=== PATIENT | female | born 1970 | race Caucasian/White ===

== ENCOUNTER 2017-01-28 15:26 | Observation (INO) ==
--- NOTE | 2017-01-28 16:14 | Emergency Department Note ---
Disposition Clinical Impression: Chest pain Qualifiers: Chest pain type: unspecified Qualified Code(s): R07.9 - Chest pain, unspecified Disposition: Admitted As Inpatient Condition: Good SOB HPI - General Chief Complaint: ED Shortness of Breath/Dyspnea Stated Complaint: SOB,CP Time Seen by Provider: 01/28/17 16:11 Source: patient Nursing Notes Reviewed: Yes Vital Signs Reviewed: Yes - History of Present Illness Mrs. Oglesby, a 46yo female, presents from home by POV with CC: SHARON. Onset 4 days ago. Worsened 3 days ago and has been progressive. Patient was seen in this emergency department 3 days ago for a different complaint which superseded her dyspnea at that time. Patient states her dyspnea has been worse with exertion, now present at rest. States she has had a left parasternal chest heaviness onset this morning at 7 AM and persisted. Patient is taking nothing to attempt to relieve her symptoms which are worsened by activity. Her chest heaviness radiates into her left jaw and left arm. On reexamination, patient is clutching her chest. PMH: Fibromyalgia. Prediabetes, obesity. Patient has remote history of hypertension, hyperlipidemia though she is currently not medicated for it. Family history: Mother had an AR younger than 65, brother and sister had MIs in their early to mid 40s. Habits: Current every day smoker. - Related Data Home Medications Medication Instructions Recorded Confirmed Gabapentin [Neurontin] 600 mg PO HS 01/05/17 01/28/17 Meloxicam [Mobic] 15 mg PO HS 01/05/17 01/28/17 Tizanidine HCl 4 - 8 mg PO HS 01/05/17 01/28/17 Previous Rx's Medication Instructions Recorded Buspirone HCl [Buspar] 7.5 mg PO BID #20 tab 01/30/17 Allergies Allergy/AdvReac Type Severity Reaction Status Date / Time acetaminophen [From Percocet] Allergy Vomiting Verified 01/28/17 15:43 aspirin [From Percodan] Allergy Vomiting Verified 01/28/17 15:43 codeine Allergy Itching Verified 01/28/17 15:43 hydrocodone [From Vicodin] Allergy Vomiting Verified 01/28/17 15:43 Oxycodone [From Percocet] Allergy Vomiting Verified 01/28/17 15:43 Penicillins [PCN] Allergy See Verified 01/28/17 15:43 Comments tramadol Allergy Itching Verified 01/28/17 15:43 All systems ED: reviewed and negative except as stated. Constitutional: Reports: weakness. Denies: fever, chills Cardiovascular: Reports: chest pain, dyspnea on exertion. Denies: palpitations , orthopnea, edema, syncope Respiratory: Reports: dyspnea, wheezes. Denies: cough, hemoptysis, stridor, sputum production Gastrointestinal: Reports: nausea. Denies: abdominal pain, vomiting, diarrhea, constipation, hematemesis, melena, hematochezia Genitourinary: Denies: urgency, dysuria, frequency Musculoskeletal: Denies: back pain, neck pain Neurological: Reports: weakness. Denies: headache, numbness, paresthesias, confusion, vertigo Hematological/Lymphatic: Denies: easy bleeding, easy bruising Past Medical History - Past Medical History Medical history: Reports: fibromyalgia, other Surgical history: Reports: bariatric surgery Psychiatric history: Reports: anxiety - Social History Smoking Status: Current every day smoker Smokeless Tobacco Status: No Alcohol use: Reports: none Drug use: Reports: none Physical Exam General: Patient is alert, oriented, and in no acute distress. HEENT: No facial asymmetry. Head is normocephalic and atraumatic. Trachea midline. Cardiovascular: Heart regular rate and rhythm without clicks, rubs, gallops, or murmurs. No JVD. PMI nondisplaced. 1+ painful pitting edema bilaterally. Patient does have sharp chest pain on sternal palpation which she states is different than the chest heaviness. Respiratory: Symmetric chest rise with good respiratory effort. Bilateral breath sounds are without crackles or rhonchi. Mild diffuse wheezing. Abdomen: Obese. Bowel sounds present normoactive x-4 quadrants. Abdomen is soft, nondistended, and nontender. Unable to assess organomegaly secondary to patient's body habitus. Psych: Patient's affect is appropriate for situation. - General General appearance: alert, in no apparent distress Course Course Narrative: Patient states that aspirin gives her an upset stomach. Patient story is concerning for cardiac event. Will begin cardiac workup and reassess. She is in agreement to come into the hospital for continued management and workup. After one nitro, patient's CP went from 8/10 to 6/10. After all 3 nitroglycerin , patient's chest pain was at a 3/10. We will dose morphine for resolution of chest pain. Patient's troponin is 0. The remainder of her serum studies are unremarkable. Her EKG remains somewhat concerning for a 1/2mm ST depression in inferior leads without T-wave inversion or ST elevation. Her story is also concerning. Spoke with the nurse practitioner for limited hospitalist who agrees to accept the patient for continued cardiac workup and ACS rule out. Spoke with the patient and nurses plan to shared decision making. She is in agreement with no additional questions or concerns at this time. Vital Signs Temperature 97.8 F 01/28/17 15:39 Pulse Rate 72 01/28/17 15:39 Respiratory Rate 16 01/28/17 15:39 Blood Pressure 137/90 01/28/17 15:39 O2 Sat by Pulse Oximetry 95 01/28/17 15:39 Temperature 97.9 F 01/30/17 15:12 Pulse Rate 83 01/30/17 15:12 Respiratory Rate 16 01/30/17 15:12 Blood Pressure 147/84 01/30/17 15:12 O2 Sat by Pulse Oximetry 97 01/30/17 15:12 Oxygen Delivery Oxygen Delivery Room Air Shortness of Breath/Dyspnea - Medical Records Medical records reviewed: Yes I reviewed the patient's medical records. - Lab Data Lab results reviewed: Yes I reviewed the patient's lab results. Result diagrams: 01/29/17 04:23 01/28/17 16:06 Lab Results 01/28/17 01/28/17 01/28/17 Range/Units 16:06 16:06 16:06 WBC 6.0 (4.3-11.1) K/mcL RBC 4.70 (3.82-4.97) M/mcL Hgb 13.7 (11.5-15.4) g/dL Hct 42.0 (35.3-44.9) % MCV 89.4 (83.0-100.0) fL MCH 29.1 (28.0-33.3) pg MCHC 32.6 (31.6-35.5) g/dL RDW 13.0 (11.5-14.5) % Plt Count 237 (140-400) K/mcL MPV 9.6 (9.4-12.4) fL Immature Gran % 0.3 (0-4) % Seg Neutrophils % 53.2 % Lymphocytes % 36.3 % Monocytes % 6.0 % Eosinophils % 3.5 % Basophils % 0.7 % Neutrophils # 3.2 (1.6-8.9) K/mcL Lymphocytes # 2.2 (0.6-4.6) K/mcL Monocytes # 0.4 (0.0-1.3) K/mcL Eosinophils # 0.2 (0.0-0.6) K/mcL Basophils # 0.0 (0.0-0.2) K/mcL PT 11.8 (9.4-12.1) Seconds INR 1.1 APTT 31.5 (26.0-36.0) Seconds Sodium 140 (136-145) mEq/L Potassium 4.2 (3.5-4.5) mEq/L Chloride 108 (98-109) mEq/L Carbon Dioxide 23 (19-29) mEq/L BUN 12 (7-20) mg/dL Creatinine 0.79 (0.57-1.11) mg/dL Est GFR ( Amer) > 60 (> 60) Est GFR (Non-Af Amer) > 60 (> 60) BUN/Creatinine Ratio 15 (6-26) Glucose 86 (70-99) mg/dL Calculated Osmolality 289 (280-300) Calcium 8.7 (8.6-10.8) mg/dL Troponin I (0-0.03) ng/mL TSH 2.472 (0.350-4.840) mcIU/mL 01/28/17 Range/Units 16:06 WBC (4.3-11.1) K/mcL RBC (3.82-4.97) M/mcL Hgb (11.5-15.4) g/dL Hct (35.3-44.9) % MCV (83.0-100.0) fL MCH (28.0-33.3) pg MCHC (31.6-35.5) g/dL RDW (11.5-14.5) % Plt Count (140-400) K/mcL MPV (9.4-12.4) fL Immature Gran % (0-4) % Seg Neutrophils % % Lymphocytes % % Monocytes % % Eosinophils % % Basophils % % Neutrophils # (1.6-8.9) K/mcL Lymphocytes # (0.6-4.6) K/mcL Monocytes # (0.0-1.3) K/mcL Eosinophils # (0.0-0.6) K/mcL Basophils # (0.0-0.2) K/mcL PT (9.4-12.1) Seconds INR APTT (26.0-36.0) Seconds Sodium (136-145) mEq/L Potassium (3.5-4.5) mEq/L Chloride (98-109) mEq/L Carbon Dioxide (19-29) mEq/L BUN (7-20) mg/dL Creatinine (0.57-1.11) mg/dL Est GFR ( Amer) (> 60) Est GFR (Non-Af Amer) (> 60) BUN/Creatinine Ratio (6-26) Glucose (70-99) mg/dL Calculated Osmolality (280-300) Calcium (8.6-10.8) mg/dL Troponin I 0.00 (0-0.03) ng/mL TSH (0.350-4.840) mcIU/mL - Radiology Data Radiology results reviewed: Yes I reviewed the patient's radiology results. Chest X-Ray 01/28/17 15:32 IMPRESSION: No pneumonia or edema D/ / Ignacio Sanchez MD / Ignacio Sanchez MD Interpreting Provider: Ingacio Sanchez MD - EKG Data EKG attestation: Yes I reviewed and interpreted this EKG. EKG results narrative: EKG dated 01/28/17 interpreted as sinus bradycardia with a rate of 58. Normal intervals IL 155, QRS 87, QT/QTc 384/381. Normal axis. Nonspecific ST-T changes with approximately half millimeter ST depression in inferior limb leads. No previous EKG for comparison. Attestation Statement - Attestation Attestation: I examined this patient and my medical decision-making was reviewed with the Resident Physician. I agree with the documented findings, disposition and treatment plan as described. Heart Score - Score History: Highly Suspicious EKG: Non Specific repolarisation Disturbance Age: 45-65 Risk Factors: Equal/Greater than 3 risk factor or history of atherosclerotic disease Troponin: Less than normal limit HEART Score Total: 6
[2017-01-28 16:16] LABS: Basophils % 0.7 %; Eosinophils # 0.2 K/mcL (0.0-0.6); Eosinophils % 3.5 %; Hemoglobin 13.7 g/dL (11.5-15.4); Immature Granulocytes % 0.3 % (0-4); Lymphocytes # 2.2 K/mcL (0.6-4.6); Lymphocytes % 36.3 %; Mean Corpuscular HGB Conc 32.6 g/dL (31.6-35.5); Mean Corpuscular Hemoglobin 29.1 pg (28.0-33.3); Mean Corpuscular Volume 89.4 fL (83.0-100.0); Mean Platelet Volume 9.6 fL (9.4-12.4); Monocytes # 0.4 K/mcL (0.0-1.3); Neutrophils # 3.2 K/mcL (1.6-8.9); Platelet Count 237 K/mcL (140-400); Segmented Neutrophils % 53.2 %
[2017-01-28 16:27] LABS: BUN/Creatinine Ratio 15 (6-26); Blood Urea Nitrogen 12 mg/dL (7-20); Calcium 8.7 mg/dL (8.6-10.8); Carbon Dioxide 23 mEq/L (19-29); Chloride 108 mEq/L (98-109); Glucose 86 mg/dL (70-99); Osmolality,Calculated 289 (280-300); Potassium 4.2 mEq/L (3.5-4.5); Sodium 140 mEq/L (136-145); eGFR For African Americans > 60 (> 60); eGFR For Non-African Americans > 60 (> 60)
[2017-01-28 16:28] LABS: INR 1.1; Prothrombin Time 11.8 Seconds (9.4-12.1)
[2017-01-28 16:30] LABS: Activated Partial Thrombo Time 31.5 Seconds (26.0-36.0)
[2017-01-28] MEDS ORDERED: Aspirin 81 MG TAB.CHEW PO ONE (16:32)
[2017-01-28] MEDS ORDERED: Ondansetron 4 MG/2 ML VIAL IVP STA (16:35)
[2017-01-28] MEDS ORDERED: *HR* Morphine 2 MG/ML SYRINGE IVP STA (16:36)
[2017-01-28 16:51] LABS: Thyroid Stimulating Hormone 2.472 mcIU/mL (0.350-4.840)
[2017-01-28] MEDS: Nitroglycerin 0.4 MG TAB.SUBL SL ONE ×3 (17:03→17:19)
--- NOTE | 2017-01-28 20:30 | Internal Med History&Physical ---
<Kiah Obrien - Last Filed: 01/28/17 20:58> Date of Encounter: 01/28/17 Time of Encounter: 20:15 Assessment and Plan (1) Chest pain Current visit: Yes Status: Acute Pt has been SOB and ADAMS for 4 days, L chest heaviness with radiation to L jaw and arm today at 0700. Heaviness becomes worse with exertion and is relieved by rest and is not reproduceable with palpation. pt states that she feels palpitations at times and is dizzy with position change. Pain was decreased from 8/10-3/10 with NTG sl and Morphine in ED. EKG sinus galileo with rate of 56, no ST elevation or depression noted, no T wave abnormalities. Stress test Cardiac diet Repeat troponins Telemetry Continuous pulse ox NTG prn pain Morphine 2mg IV q2hr prn pain Qualifiers: Chest pain type: unspecified Qualified Code(s): R07.9 - Chest pain, unspecified (2) Migraines Current visit: Yes Status: Acute Pt has history of migraines and she is seeing a new neurologist in [place]. Tonight she has a headache that is just like her normal headache that starts in the frontal area with radiation straight through to occiput. Denies nausea but c /o photophobia. States that NTG made it worse. Rates it 9/10 and no change from her normal headaches. Will monitor and can use morphine for pain control, as well as Tylenol. Qualifiers: Migraine type: unspecified Intractability: not intractable Qualified Code (s): G43.009 - Migraine without aura, not intractable, without status migrainosus (3) SOB (shortness of breath) Current visit: Yes Status: Acute Onset of SOB 4 days ago and ADAMS 3 days ago. Pt is a smoker. Pt denies wheezing, however, faint expiratory wheezing is heard in komal bases with auscultation. Chest xray negative for pneumonia or pneumothorax or any acute cardiopulmonary processes. Duonebs prn wheezing 02 prn to maintain sats > 92% (4) Tobacco abuse Current visit: Yes Status: Acute Pt smokes about 1 PPD. Refuses Nicoderm patch at this time. She is aware that it is available to her if she changes her mind. Smoking cessation information on discharge. (5) Fibromyalgia Current visit: Yes Status: Chronic Stable. Pt reports increased fatigue with chest pain and states that her shins are painful to touch during exam. Will continue to monitor and continue home medications. Internal Medicine - H&P: HPI Chief complaint: chest pain, sob x 4 days Admitted From: Home Plans for Post Hospital Care: Home History of present illness: Ms. Oglesby is a 46 year old female with a history of fibromyalgia and migraines, who presents to ED today with 4 day history of SOB, ADAMS, fatigue, and L chest heaviness starting at 0700 today. Chest heaviness is worse with activity and radiates to L jaw and arm. Pt states that it is relieved with rest and it makes her tired. States "it is sucking all of the energy out of me. Its debilitating. " She rates pain 8/10 with decrease to 3/10 with Ntg x 3 in ED. Pt also reports 9/10 frontal ROMERO with radiation to occiput, onset "earlier today" but NTG made it worse. Pt just started seeing neuro in [place] for help with migraines. Past Med Surg Social Fam HX - Past Medical History Medical history: fibromyalgia, migraine, other Psychiatric history: no psych history - Past Surgical History Surgical History: hysterectomy, bariatric surgery - Social History Smoking Status: Current every day smoker Packs per day: 1 Smokeless Tobacco Status: No Alcohol use: none Drug use: none - Family History Mother Hx Family Cardiac Disorders: Yes (HYPERTENSION.) Internal Medicine - H&P: Meds Gabapentin [Neurontin] 600 mg PO HS 01/05/17 [History] Meloxicam [Mobic] 15 mg PO HS 01/05/17 [History] Tizanidine HCl [Tizanidine HCl] 4 - 8 mg PO HS 01/05/17 [History] Allergies acetaminophen [From Percocet] Allergy (Verified 01/28/17 15:43) Vomiting aspirin [From Percodan] Allergy (Verified 01/28/17 15:43) Vomiting codeine Allergy (Verified 01/28/17 15:43) Itching hydrocodone [From Vicodin] Allergy (Verified 01/28/17 15:43) Vomiting Oxycodone [From Percocet] Allergy (Verified 01/28/17 15:43) Vomiting Penicillins [PCN] Allergy (Verified 01/28/17 15:43) See Comments Unknown tramadol Allergy (Verified 01/28/17 15:43) Itching All Systems PM: A 10-system review of systems was performed and is negative for pertinent findings except as documented above in the HPI. - Constitutional Constitutional: anorexia, fatigue, fever(s), no chills, no excessive sweating, no falls, no lethargy, no malaise, no night sweats, no weakness - EENT Eyes: photophobia, no blurry vision, no change in vision - Cardiovascular Cardiovascular ROS IM: chest pain, dyspnea, dyspnea on exertion, edema, lightheadedness, palpitations, no diaphoresis - Respiratory Respiratory: no cough, no wheezing, no chest congestion, no excessive phlegm production, no change in phlegm color, no pain with cough - Gastrointestinal Gastrointestinal: nausea, no diarrhea, no vomiting - Musculoskeletal Musculoskeletal ROS IM: myalgias, no arthralgias - Integumentary Integumentary IM: no rash - Constitutional Vitals: Temp Pulse Resp BP Pulse Ox 97.7 F 63 16 97/64 95 01/28/17 18:59 01/28/17 18:59 01/28/17 18:59 01/28/17 18:59 01/28/17 18:59 General appearance: Present: cooperative, A&O X 3, pleasant, no acute distress, answers questions appropriately - Head Head exam: Present: atraumatic, normal inspection - Eye Eye exam: Present: normal appearance, conjuntiva pink - ENT ENT exam: Present: mucous membranes moist - Neck Neck exam general surgery: Present: normal inspection. Absent: lymphadenopathy , tenderness - Respiratory Respiratory exam: Present: decreased breath sounds, CTAB, wheezes. Absent: accessory muscle use, chest wall tenderness, rales, respiratory distress, rhonchi, stridor Additional comments: Faint wheezing heard in komal bases. - Cardiovascular Cardiovascular exam: Present: RRR, +S1, +S2. Absent: bradycardia, tachycardia - GI/Abdominal GI/Abdominal exam: Present: normal bowel sounds, soft. Absent: hepatomegaly, tenderness - Extremities Exam Extremities exam: Present: full ROM, normal capillary refill, normal inspection , tenderness, warm, radial pulses palpable and symetrical. Absent: joint swelling, pedal edema Additional comments: Pt states that her legs hurt when palpated. She reports feeling like she has edema, none noted. - Neurological Exam Neurological exam: Present: alert, oriented X3. Absent: no focal deficits, facial droop, speech deficit Internal Med - H&P Results - Labs CBC & Chem 7: 01/28/17 16:06 01/28/17 16:06 - EKG Data EKG shows normal: sinus rhythm Rate: normal - EKG Data Interpretation IM: normal EKG EKG comments: 01/28/17 20:41 Sinus bradycardia Rate 56 OK int 164 QRS 89 QT/QTc 399/390 <Suellen Nazario - Last Filed: 01/28/17 21:40> Date of Encounter: 01/28/17 Internal Medicine - H&P: HPI History of present illness: Ms. Oglesby is a 46 year old female All Systems PM: A 10-system review of systems was performed and is negative for pertinent findings except as documented above in the HPI. - Constitutional Vitals: Temp Pulse Resp BP Pulse Ox 97.7 F 63 16 97/64 95 01/28/17 18:59 01/28/17 18:59 01/28/17 18:59 01/28/17 18:59 01/28/17 18:59 Internal Med - H&P Results - Labs CBC & Chem 7: 01/28/17 16:06 01/28/17 16:06 - Attending Attestation Patient seen and evaluated independently, agree with assessment and plan by Kiah Obrien CNP. Patient with shortness of breath and chest pain which developed earlier today. Chest pain is worse with exertion and deep breath. She has been relatively immobile past few days because of hip pain she developed after bathing her dog five days ago. She denies history of DVT or PE, however will order CTA to rule out PE. Will trend troponin to rule out ACS and obtain stress test in AM.
[2017-01-28] MEDS ORDERED: MOM Conc 10 ML UD.LIQ PO PRN (20:46)
[2017-01-28] MEDS ORDERED: Mag Hydrox/Al Hydrox/Simeth 30 ML UDC PO PRN (20:46)
[2017-01-28] MEDS ORDERED: Ondansetron 4 MG/2 ML VIAL IVP PRN (20:46)
[2017-01-28] MEDS ORDERED: Naloxone 0.4 MG/ML INJ IVP PRN (20:46)
[2017-01-28] MEDS ORDERED: Acetaminophen 325 MG TABLET PO PRN (20:46)
[2017-01-28] MEDS ORDERED: *HR* Morphine 2 MG/ML SYRINGE IVP PRN (20:46)
[2017-01-28] MEDS ORDERED: Ipratropium/Albuterol Neb 3 ML IH PRN (20:49)
[2017-01-28] MEDS: tiZANidine 4 MG TABLET PO SCH (21:52)
[2017-01-28] MEDS: Gabapentin 300 MG CAPSULE PO SCH (21:52)
[2017-01-29 04:45] LABS: Basophils % 0.5 %; Eosinophils # 0.3 K/mcL (0.0-0.6); Eosinophils % 3.9 %; Hematocrit 39.9 % (35.3-44.9); Hemoglobin 12.9 g/dL (11.5-15.4); Immature Granulocytes % 0.2 % (0-4); Lymphocytes # 1.7 K/mcL (0.6-4.6); Lymphocytes % 25.6 %; Mean Corpuscular HGB Conc 32.3 g/dL (31.6-35.5); Mean Corpuscular Hemoglobin 29.7 pg (28.0-33.3); Mean Corpuscular Volume 91.7 fL (83.0-100.0); Mean Platelet Volume 9.9 fL (9.4-12.4); Monocytes # 0.4 K/mcL (0.0-1.3); Monocytes % 6.1 %; Neutrophils # 4.1 K/mcL (1.6-8.9); Platelet Count 212 K/mcL (140-400); Red Blood Count 4.35 M/mcL (3.82-4.97); Red Cell Distribution Width 13.2 % (11.5-14.5); Segmented Neutrophils % 63.7 %
[2017-01-29] MEDS ORDERED: Regadenoson 0.4 MG/5 ML SYRINGE IVP ONE (07:44)
--- NOTE | 2017-01-29 08:57 | Electrocardiograph Report ---
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
--- NOTE | 2017-01-29 09:54 | Internal Med Progress Note ---
Date of Encounter: 01/29/17 Time of Encounter: 09:00 - Assessment and plan (1) Chest pain Current Visit: Yes Status: Acute Assessment and plan: Patient still endorsing chest pain though states it is less severe. She is also endorsing shortness of breath above her norm however she is on room air and her breath sounds are even and easy with good aeration. Echocardiogram pending. Her stress test will need to be over 2 days. Chest x-ray negative. Chest CTA negative. Awaiting echocardiogram and second part of her stress test. Qualifiers: Chest pain type: unspecified Qualified Code(s): R07.9 - Chest pain, unspecified (2) Ineffective coping Current Visit: Yes Status: Acute Assessment and plan: Patient stating approximately one year ago that she was convinced she was dying. She had severe pain to her entire body and had a severe headache. She states that she had to move back here and to [place] that she could be close to her family as she was dying. There is no clinical evidence of any ominous pathologies and her history. Patient is quite histrionic when she describes her symptoms. She states this time around she feels just like she did one year ago. She states that during last year's episode she was started on gabapentin and her symptoms resolved after 3 months. Strongly suspect possible psychosocial/psychological issues are playing a factor. On examination, patient with flat affect. When given news that her chest x-ray was negative and her chest CT was negative, patient appeared disappointed. We will continue workup and continue to reassure her. (3) Intracranial hypertension Current Visit: Yes Status: Chronic Assessment and plan: Patient showed me her results from [place] from 2014 at which time brain MRI revealed intracranial hypertension. Given that her current headache is more severe and in a different location than her normal migraines, will obtain a head CT. (4) Migraines Current Visit: Yes Status: Chronic Assessment and plan: patient stating she typically takes Aleve at home for her migraines however she states her current headache is much different and more severe than her normal migraines. Qualifiers: Migraine type: unspecified Intractability: not intractable Qualified Code (s): G43.009 - Migraine without aura, not intractable, without status migrainosus (5) SOB (shortness of breath) Current Visit: Yes Status: Acute Assessment and plan: Acute on chronic and worsened on exertion. Unclear causation of this time, echocardiogram pending. Chest x-ray negative. Chest CTA negative. Patient is a one pack per day smoker. On examination, respirations even and easy and lungs with good aeration throughout. Patient is tolerating room air. ITS Impressions Chest X-Ray 01/28/17 15:32 IMPRESSION: No pneumonia or edema D/ / Ignacio Sanchez MD / Ignacio Sanchez MD Interpreting Provider: Ignacio Sanchez MD Chest CTA 01/28/17 21:34 IMPRESSION: Negative examination for pulmonary embolism. Clear lungs. 34 mm low-attenuation lesion projecting off the medial right kidney likely represents a cyst. A non emergent elective ultrasound of the kidneys is recommended for further evaluation. D/ / Francisco Lindo MD / Francisco Lindo MD Interpreting Provider: Francisco Lindo MD (6) Tobacco abuse Current Visit: Yes Status: Chronic Assessment and plan: declined counseling; NRT. (7) Fibromyalgia Current Visit: Yes Status: Chronic Assessment and plan: Patient stating she has seen a brick off bearer at [facility] named Uli. She is uncertain whether or not other rheumatological possibilities were ruled out before diagnosing her with fibromyalgia. Her symptoms appear severe, though it appears as if she has underlying psychiatric issues as well, recommend follow-up outpatient. (8) History of Sendy-en-Y gastric bypass Current Visit: Yes Status: Chronic Assessment and plan: Patient states she had gastric bypass surgery in 2005. She states that she was told in the past that she was low on vitamin D and vitamin B12 but she states she has not been compliant with her supplementations. No anemia noted, recent vitamin D normal, TSH normal. We will check iron, B1, B12, zinc. - Subjective Interval history: Patient seen and examined. On examination, patient is sitting upright in her bed with her TV turned off and the lights off in her room. Patient endorsing a severe headache that is different from her usual headaches. She is also endorsing nausea but no vomiting. She is also endorsing mild chest pain that she states has gotten slightly better. She is also endorsing shortness of breath. - Constitutional Vitals: Temp Pulse Resp BP Pulse Ox 98.1 F 74 18 108/73 92 L 01/29/17 07:09 01/29/17 07:09 01/29/17 07:09 01/29/17 07:09 01/29/17 07:09 General appearance: Present: cooperative, A&O X 3, pleasant, no acute distress, answers questions appropriately - Head Head exam: Present: atraumatic, normocephalic - Eye Eye exam: Present: PERRL, conjuntiva pink, sclera anicteric Pupils: Present: PERRL - Neck Neck exam general surgery: Present: supple, trachea midline. Absent: lymphadenopathy - Respiratory Respiratory exam: Present: CTAB. Absent: accessory muscle use, decreased breath sounds, rales, respiratory distress, rhonchi, wheezes - Cardiovascular Cardiovascular exam: Present: RRR, +S1, +S2. Absent: diastolic murmur, gallop, rubs, systolic murmur - GI/Abdominal GI/Abdominal exam: Present: normal bowel sounds, soft, no peritoneal signs. Absent: distended, tenderness - Extremities Exam Extremities exam: Present: warm, radial pulses palpable and symetrical. Absent : calf tenderness, cyanotic, pedal edema - Neurological Exam Neurological exam: Present: alert, CN II-XII intact, oriented X3, no focal deficits, strengths equal and symetr throughout. Absent: pronater drift, facial droop, speech deficit - Psychiatric Psychiatric exam: Present: flat affect. Absent: suicidal ideation - Expanded Psychiatric Exam Focused psych exam: Present: perseverating - Skin Skin exam: Present: dry, intact, pallor, warm Internal Medicine: Result - Labs CBC & Chem 7: 01/29/17 04:23 01/28/17 16:06 Labs: Short CBC 01/29/17 Range/Units 04:23 WBC 6.4 (4.3-11.1) K/mcL Hgb 12.9 (11.5-15.4) g/dL Hct 39.9 (35.3-44.9) % Plt Count 212 (140-400) K/mcL Neutrophils # 4.1 (1.6-8.9) K/mcL Cardiac Enzymes 01/28/17 01/29/17 Range/Units 21:30 04:23 Troponin I 0.00 0.00 (0-0.03) ng/mL - ABG Interpretation ABG results: PT/INR, D-dimer PT 11.8 Seconds (9.4-12.1) 01/28/17 16:06 - Impressions Impressions Chest CTA 01/28/17 21:34 IMPRESSION: Negative examination for pulmonary embolism. Clear lungs. 34 mm low-attenuation lesion projecting off the medial right kidney likely represents a cyst. A non emergent elective ultrasound of the kidneys is recommended for further evaluation. D/ / Francisco Lindo MD / Francisco Lindo MD Interpreting Provider: Francisco Lindo MD Consult Discharge Plan - Plan Referrals: Alexy Mcmahan DO [Primary Care Provider] -
[2017-01-29] MEDS ORDERED: Ketorolac 30 MG/ML VIAL IVP ONE (10:08)
[2017-01-29] MEDS ORDERED: Ondansetron 4 MG/2 ML VIAL IVP PRN (10:12)
[2017-01-29] MEDS: Prochlorperazine 10 MG/2 ML VIAL IVP SCH (13:25)
[2017-01-29] MEDS: Gabapentin 300 MG CAPSULE PO SCH (21:34)
[2017-01-29] MEDS: tiZANidine 4 MG TABLET PO SCH (21:34)
[2017-01-30 05:45] LABS: % Iron Saturation 20 % (15-50); Iron 76 mcg/dL (50-170); Transferrin 267 mg/dL (180-382)
[2017-01-30 06:06] LABS: Ferritin 9 ng/ml (5-204)
[2017-01-30] MEDS: Prochlorperazine 10 MG/2 ML VIAL IVP SCH (07:39)
--- NOTE | 2017-01-30 10:11 | ECHO - Doppler Report ---
Echocardiogram Name: Kalyn Oglesby Date of Study: 01/29/2017 Date: 1970 Ht: 63.0 in Medical Record#: [id number] Age: 46 Wt: 250.0 lb Gender: Female BSA: 2.13 Order #: [id number] Location: [facility] Room #: 3B Reading Physician: Luis Poe DO, SHAWN, STANLEY HAQUE Milking System Installer: Nichelle Castillo RVT Ordering Physician: Marry Dwakins CNP Primary Physician: Alexy Mcmahan DO Indications: Dyspnea on exertion, Fatigue Impressions: LVEF 60-65%. Normal LV chamber size, wall thickness and function. Normal left ventricular diastolic function. Normal right ventricular structure and function. No evidence of pulmonary hypertension. No significant valvular dysfunction. Left Ventricular Wall Motion: Rest Echo Findings All wall segments showed normal motion. Findings: Study Quality * Technically adequate exam. ECG Findings * Normal sinus rhythm. Left Ventricle * LVEF 60-65%. * Normal LV chamber size, wall thickness and function. * Normal left ventricular diastolic function. Right Ventricle * Normal right ventricular structure and function. Left Atrium * Mildly dilated left atrium. Right Atrium * Mildly dilated right atrium. Interatrial Septum * Interatrial septum not well evaluated. Aortic Valve * Aortic valve not well visualized. * No aortic regurgitation. * No aortic stenosis. Mitral Valve * Normal mitral valve structure and function. * No mitral stenosis. * No mitral regurgitation. Tricuspid Valve * Normal tricuspid valve structure and function. * Trace tricuspid regurgitation. * No evidence of pulmonary hypertension. Pulmonic Valve * Normal pulmonic valve structure and function. * No pulmonic regurgitation. Pericardium * The pericardium appears normal. IVC * Normal IVC dimensions and inspiratory collapse. Pulmonary Artery * Normal visualized portions of the main pulmonary artery. History History of Smoking Years 20 Packs 1 Family History of CAD Measurements: BP: 126/ 76 2D Normal Values RVIDd: 3.40 cm <2.7 cm IVSd: .70 cm 0.6 - 1.0 cm LVIDd: 4.80 cm 3.7 - 5.6 cm LVPWd: .90 cm 0.6 - 1.1 cm LVIDs: 3.50 cm 1.5 - 3.6 cm AO: 2.50 cm < 4.0 cm LA: 3.00 cm 2.0 - 4.0cm %FS: 27.10 cm >25 % LA volume: 58 Mitral Valve Peak E:.85 m/sec Peak A:.70 m/sec E/A Ratio:1.2 Peak E' Lat Tom:11.2 cm/s Peak E' Med Tom:9.51 cm/s E/E' Lat Ratio:7.6 E/E' Med Ratio:8.9 Tricuspid Valve TV Regurg Peak Grad: 10.00mmHg TV Regurg Peak Tom: 1.61m/sec Updated by Luis Poe DO, FACZechariah, STANLEY HAQUE on 01/30/2017 10:06:08 AM electronically signed on 01/30/2017 10:06:27 AM with status of Final Wall Motion Amos: 1=Normal, 2=Hypokinesis, 3=Akinesis, 4=Dyskinesis, 5=Aneurysmal, 6=Hyperkinetic, X=Not Visualized (Blank)=Missing
--- NOTE | 2017-01-30 11:10 | Electrocardiograph Report ---
Regadenoson Nuclear 2 day Name: Kalyn Oglesby Date of Study: 01/29/2017 Date: 1970 Ht: 63.0 in Medical Record#: [id number] Age: 46 Wt: 254.0 lb Gender: Female Order #: [id number] Location: [facility] Room: [facility] Supervising Provider: Jorge Roche CNP Reading Physician: Luis Poe DO, GARLAND ESCOBAR FASNC Ordering Physician: Sage Beck MD Primary Care Physician: Alexy Mcmahan DO Stress Technologist: Josselin Corbin ANALYTICAL RESEARCH CHEMIST, CCT Self Sealing Fuel Tank Builder: Blu Hackett Indications: Chest Pain Impression: Pharmacologic stress ECG is negative for ischemia at level of heart rate achieved. Gated EF > 70%. Perfusion imaging was negative for ischemia or infarct. History: History of Smoking Stress Test Summary: Stress Test Type: Pharmacologic Regadenoson 0.4mg/5ml given IV Baseline Information: Initial Heart Rate: 77 Blood Pressure: 136/78 Stress Information: Test Terminated Due to (primary): As per protocol Maximum Blood Pressure: 124/78 Maximum Heart Rate: 119 Percent Maximum Heart Rate Achieved: 69 Double Product: 72250 METS Reached: 1 Symptoms: Nausea, No chest symptoms Nuclear Summary: SPECT myocardial perfusion imaging using Tc99m Sestamibi given intravenously was performed at rest and following cardiac stress testing. The resting images were obtained following initial dose of 35.8 mCi. Following stress an additional dose of 33.7 mCi was given at peak exercise or 30 seconds post regadenoson infusion. Medication Given: Time Medication Dose Units Route Findings: Stress Note * Resting ECG demonstrated normal sinus rhythm. * No baseline arrhythmias were noted. * Pharmacologic stress ECG is negative for ischemia at level of heart rate achieved. * No arrhythmias were noted during stress. * Patient had no chest pain during stress. * Normal hemodynamic responses to pharmacologic stress. Study Quality * Study quality is good. Gated EF > 70% * Gated EF > 70%. Left Ventricle * The left ventricle is not dilated. LVEDV = 84 mL. NORMALS * Normal wall motion. * Normal segmental perfusion in rest. * Normal segmental perfusion in stress. TID * No evidence of transient ischemic dilatation. TID ratio = 0.69. Lung Uptake * There is no evidence of increase lung uptake. Updated by Luis Poe DO, FACZechariah, GARLAND, FASHELGA on 01/30/2017 11:04:32 AM electronically signed on 01/30/2017 11:05:33 AM with status of Final
--- NOTE | 2017-01-30 15:03 | Discharge Summary ---
Date of Encounter: 01/30/17 Time of Encounter: 14:00 - Discharge Diagnosis (1) Chest pain Priority: Primary Status: Acute Comments: Patient still endorsing chest pain though states it is less severe. She is also endorsing shortness of breath above her norm however she is on room air and her breath sounds are even and easy with good aeration. Echocardiogram unremarkable with ejection fraction of 60-65%. Stress test negative. Chest x- ray negative. Chest CTA negative. Acute pulmonic or cardiac etiologies ruled out. Examination and history consistent with anxiety. Qualifiers: Chest pain type: unspecified Qualified Code(s): R07.9 - Chest pain, unspecified (2) Ineffective coping Priority: Primary Status: Acute Comments: Patient stating she is upset that all of the testing was negative. she continues to be concerned and anxious. Will initiate Buspar prn and have her followup outpatient. (3) Intracranial hypertension Priority: Secondary Status: Ruled-out Comments: Head CT negative (4) Migraines Priority: Secondary Status: Chronic Qualifiers: Migraine type: unspecified Intractability: not intractable Qualified Code (s): G43.009 - Migraine without aura, not intractable, without status migrainosus (5) SOB (shortness of breath) Priority: Primary Status: Ruled-out (6) Tobacco abuse Priority: Secondary Status: Chronic Comments: Declined counseling (7) Fibromyalgia Priority: Secondary Status: Chronic Comments: Follows with a internet retailer Dr. 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 No anemia. - Discharge Medications Prescriptions: Buspirone HCl [Buspar] 7.5 mg PO BID #20 tab Home Medications: Gabapentin [Neurontin] 600 mg PO HS 01/05/17 [History] Meloxicam [Mobic] 15 mg PO HS 01/05/17 [History] Tizanidine HCl 4 - 8 mg PO HS 01/05/17 [History] Buspirone HCl [Buspar] 7.5 mg PO BID #20 tab 01/30/17 [Rx] Allergies/Adverse Reactions: Allergies acetaminophen [From Percocet] Allergy (Verified 01/28/17 15:43) Vomiting aspirin [From Percodan] Allergy (Verified 01/28/17 15:43) Vomiting codeine Allergy (Verified 01/28/17 15:43) Itching hydrocodone [From Vicodin] Allergy (Verified 01/28/17 15:43) Vomiting Oxycodone [From Percocet] Allergy (Verified 01/28/17 15:43) Vomiting Penicillins [PCN] Allergy (Verified 01/28/17 15:43) See Comments Unknown tramadol Allergy (Verified 01/28/17 15:43) Itching Procedures/tests Complete & Pending: Procedures Performed prior 72 hours Category Date Time Status CT angio chest [CT] Stat Cat Scan 01/28/17 21:[address] head/brain wo con [CT] Routine Cat Scan 01/29/17 15:00 Completed NM yoni perf SPECT multi [NM] Routine Exams 01/28/17 20:46 Taken ECG 12 lead ECG [ECG] Routine Y 01/29/17 17:58 Completed EV echocardiogram Routine Y 01/29/17 08:01 Completed SP pharm nuclear stress Routine Y 01/29/17 07:35 Completed Date of admission: 01/28/17 18:20 Primary care physician: Alexy Mcmahan, Discharging clinician: Marry Dawkins Anticipated date of discharge: 01/30/17 - Patient Status Disposition: Home, Self-Care Condition: Good Functional capacity at discharge: independent ambulation Overall status at discharge: patient is back to baseline - Discharge Instructions Follow Up With: Alexy Mcmahan, [Primary Care Provider] - Additional Instructions: Follow-up with primary care provider within one to 2 weeks - Diet and Activity Activity: increase activity as tolerated Diet: low fat, low cholesterol, low salt diet Hospital course: Ms. Oglesby is a 46 year old female with past medical history of fibromyalgia, migraines, current tobacco abuse, history of Sendy-en-Y and hysterectomy. Patient presented to the emergency department chief complaint 4 day history of shortness of breath, dyspnea on exertion, fatigue, and left-sided chest heaviness starting on the day of presentation. Patient stating her chest heaviness was worse with activity radiated to her left side of her jaw and her left arm. Patient stating the heaviness was relieved with rest and states that the heaviness also made her feel tired. Patient stating that the heaviness "sucked all of my energy out and was debilitating." Pain was slightly abated by nitroglycerin given in the emergency department. Patient also endorsed a frontal headache with radiation to her occiput that started on the day of presentation but was worsened with nitroglycerin. Of note, patient has a neurologist and [place] to help with her migraines and she also has a internet retailer and [place]. Workup in the emergency department unremarkable. Chest x-ray negative. Chest CTA negative for acute processes. Patient was admitted to the hospitalist service for further evaluation and management. Patient revealed paperwork from [place] that showed an old MRI from 2014 of her brain that revealed intracranial hypertension. Head CT negative. She was then treated for migraine and her headache improved. Regarding her chest pain, she had a 2 day nuclear stress test that was negative for ischemia or infarct. Acute coronary syndrome ruled out. Patient was informed of the negative results of her stress test, echo, head CT, chest x-ray , chest CTA, patient became disappointed. With acute pulmonic and cardiac and neurologic etiologies ruled out, she was discharged home in stable condition with close outpatient follow-up recommended. Likely cause of patient's decreased energy uncontrolled anxiety. Her main symptoms were shortness of breath, numbness and tingling of her hands, chest tightness-all consistent with anxiety attack. She was started on BuSpar and instructed to follow-up with her primary care team. Also of note, approximately one year ago, patient stating she had the same type of symptoms happen and felt as if she was dieting since she moved from [place] to [place] said that she could be around her family. Patient stating she was then cured approximately 3 months later after she had been on gabapentin. ITS Impressions Chest X-Ray 01/28/17 15:32 IMPRESSION: No pneumonia or edema D/ / Ignacio Sanchez MD / Ignacio Sanchez MD Interpreting Provider: Ignacio Sanchez MD Chest CTA 01/28/17 21:34 IMPRESSION: Negative examination for pulmonary embolism. Clear lungs. 34 mm low-attenuation lesion projecting off the medial right kidney likely represents a cyst. A non emergent elective ultrasound of the kidneys is recommended for further evaluation. D/ / Francisco Lindo MD / Francisco Lindo MD Interpreting Provider: Francisco Lindo MD Head CT 01/29/17 15:00 IMPRESSION: No acute intracranial abnormality. D/ / Alexy Kenney MD / Alexy Kenney MD Interpreting Provider: Alexy Kenney MD Echocardiogram impressions: LVEF 60-65%. Normal LV chamber size, wall thickness and function. Normal left ventricular diastolic function. Normal right ventricular structure and function. No evidence of pulmonary hypertension. No significant valvular dysfunction. - Time Spent with Patient Total time spent providing and/or coordinating discharge services: - Constitutional Vitals: Temp Pulse Resp BP Pulse Ox 97.8 F 72 17 162/88 97 01/30/17 11:01 01/30/17 11:01 01/30/17 11:01 01/30/17 11:01 01/30/17 11:01 General appearance: Present: cooperative, A&O X 3, pleasant, no acute distress, answers questions appropriately - Head Head exam: Present: atraumatic, normocephalic - Eye Eye exam: Present: PERRL, conjuntiva pink, sclera anicteric Pupils: Present: PERRL - Neck Neck exam general surgery: Present: supple, trachea midline. Absent: lymphadenopathy - Respiratory Respiratory exam: Present: CTAB. Absent: accessory muscle use, decreased breath sounds, rales, respiratory distress, rhonchi, wheezes - Cardiovascular Cardiovascular exam: Present: RRR, +S1, +S2. Absent: diastolic murmur, gallop, rubs, systolic murmur - GI/Abdominal GI/Abdominal exam: Present: normal bowel sounds, soft, no peritoneal signs. Absent: distended, tenderness - Extremities Exam Extremities exam: Present: warm, radial pulses palpable and symetrical. Absent : calf tenderness, cyanotic, pedal edema - Neurological Exam Neurological exam: Present: alert, CN II-XII intact, normal gait, oriented X3, no focal deficits, strengths equal and symetr throughout. Absent: pronater drift, facial droop, speech deficit - Skin Skin exam: Present: dry, intact, normal color, warm
[2017-01-30 15:14] VITALS: BP 147/84
[2017-02-03 07:16] LABS: Zinc 58 ug/dL (60-120)
[2017-02-04 08:19] LABS: Vitamin B1 (Thiamine) Whole Bl 72 nmol/L (70-180)
== END 2017-01-30 16:16 | disposition home or self-care (01) ==
LOC: EMEROO 15:26 → 3BNU 15:26 → SUATTDRO 18:20 → 3BNU 18:28
PROVIDERS: ADMIT Internal Medicine; ATTEND Nurse Practitioner Family

== ENCOUNTER 2020-02-06 06:31 | Inpatient (IN) ==
[~2020-02-06 06:31] MED LIST: Gabapentin 300 MG CAPSULE PO ONE; Ipratropium/Albuterol Neb 3 ML IH ONE
[2020-02-06] MEDS ORDERED: *HR* Labetalol 20 MG/4 ML SYRINGE IVP PRN (07:03)
[2020-02-06] MEDS ORDERED: *HR* Promethazine 25 MG/ML VIAL IVP PRN (07:03)
[2020-02-06] MEDS ORDERED: Ondansetron 4 MG/2 ML VIAL IVP PRN ×2 (07:03→11:40)
[2020-02-06] MEDS ORDERED: *HR* HYDROmorphone (PF) 1 MG/ML SYRINGE IVP PRN (07:03)
[2020-02-06] MEDS ORDERED: Celecoxib 200 MG CAPSULE PO ONE (07:16)
[2020-02-06] MEDS ORDERED: *HR* Midazolam HCl 2 MG/2 ML VIAL ONE (07:23)
[2020-02-06] MEDS ORDERED: *HR* FentaNYL (PF) 100 MCG/2 ML VIAL ONE (07:23)
[2020-02-06] MEDS ORDERED: Ethanol\\Acetic Acid\\Na Ace\\Ben 1,000 ML IRRIG.SOLN IR ONE (07:24)
[2020-02-06] MEDS ORDERED: *HR* Propofol 200 MG/20 ML VIAL IVP ONE (07:24)
[2020-02-06] MEDS ORDERED: Lidocaine -MPF 2% 2 ML VIAL ONE ×3 (07:25→08:03)
[2020-02-06] MEDS ORDERED: Dexamethasone 4 MG/ML VIAL ONE ×2 (07:25→07:32)
[2020-02-06] MEDS ORDERED: Ondansetron 4 MG/2 ML VIAL ONE (07:25)
[2020-02-06] MEDS ORDERED: *HR* Succinylcholine 200 MG/10 ML VIAL IVP ONE (07:25)
[2020-02-06] MEDS ORDERED: *HR* HYDROMORPHONE 2 MG/ML VIAL ONE (07:33)
[2020-02-06] MEDS ORDERED: Lidocaine HCL 4 ML Topical Solution (Laryng-O-Jet Kit Sterile Pak) TP ONE (07:33)
[2020-02-06] MEDS ORDERED: Clindamycin 900 MG/50 ML 900 MG/50 ML IV.SOLN IVPB ONE (07:52)
[2020-02-06] MEDS ORDERED: Ringers Solution, Lactated 1,000 ML IVC SCH (08:00)
[2020-02-06] MEDS ORDERED: *HR* Rocuronium Bromide 50 MG/5 ML VIAL ONE (08:03)
[2020-02-06] MEDS ORDERED: *HR* PHENYLEPHRINE 1,000 MCG/10 ML SYRINGE IVP ONE (09:21)
[2020-02-06] MEDS ORDERED: EPHEDrine 50 MG/ML VIAL ONE (09:23)
[2020-02-06 10:57] LABS: Hematocrit 39.8 % (35.3-44.9); Hemoglobin 11.8 g/dL (11.5-15.4)
[2020-02-06] MEDS ORDERED: Baclofen 10 MG TABLET PO PRN (11:40)
[2020-02-06] MEDS ORDERED: MOM Conc 10 ML UD.LIQ PO PRN (11:40)
[2020-02-06] MEDS ORDERED: Naloxone 0.4 MG/ML INJ IVP PRN (11:40)
[2020-02-06] MEDS ORDERED: Sennosides 8.6 MG TABLET PO PRN (11:40)
[2020-02-06] MEDS ORDERED: tiZANidine 4 MG TABLET PO PRN (11:40)
[2020-02-06] MEDS: Ringers Solution, Lactated 1,000 ML IVC SCH (14:16)
[2020-02-06] MEDS ORDERED: HYDROcodone BIT/Homatropine 5 MG TABLET PO PRN (15:35)
[2020-02-06] MEDS ORDERED: Acetaminophen IV 1,000 MG/100 ML INFUS..BTL IVPB ONE (15:37)
[2020-02-06] MEDS: Gabapentin 300 MG CAPSULE PO SCH ×2 (16:10→19:55)
[2020-02-06] MEDS: Clindamycin 900 MG/50 ML 900 MG/50 ML IV.SOLN IVPB SCH ×2 (17:08→23:52)
[2020-02-06] MEDS: *HR* Enoxaparin 30 MG/0.3 ML SYRINGE SQ SCH (17:09)
[2020-02-06] MEDS ORDERED: *HR* Enoxaparin 30 MG/0.3 ML SYRINGE SQ SCH (18:00)
[2020-02-06] MEDS: HYDROcodone BIT/Homatropine 5 MG TABLET PO PRN (18:00)
[2020-02-06] MEDS: Ketorolac 30 MG/ML VIAL IVP PRN (19:55)
[2020-02-07] MEDS: HYDROcodone BIT/Homatropine 5 MG TABLET PO PRN ×2 (03:44→08:04)
[2020-02-07] MEDS: Ketorolac 30 MG/ML VIAL IVP PRN (06:04)
[2020-02-07] MEDS: *HR* Enoxaparin 30 MG/0.3 ML SYRINGE SQ SCH (06:04)
[2020-02-07 06:19] LABS: Hematocrit 34.1 % (35.3-44.9)
[2020-02-07 06:22] LABS: Hemoglobin 10.2 g/dL (11.5-15.4)
[2020-02-07 06:40] LABS: BUN/Creatinine Ratio 18 (6-26); Blood Urea Nitrogen 13 mg/dL (6-20); Calcium 8.7 mg/dL (8.6-10.3); Carbon Dioxide 28 mEq/L (23-29); Chloride 103 mEq/L (98-107); Glucose 120 mg/dL (70-105); Osmolality,Calculated 283 (280-300); Potassium 4.5 mEq/L (3.5-5.1); Sodium 136 mEq/L (136-145); eGFR For African Americans > 60 (> 60); eGFR For Non-African Americans > 60 (> 60)
[2020-02-07 07:03] VITALS: BP 129/74
[2020-02-07] MEDS: Ringers Solution, Lactated 1,000 ML IVC SCH (07:13)
[2020-02-07] MEDS: Gabapentin 300 MG CAPSULE PO SCH (08:04)
[2020-02-07] MEDS ORDERED: Spironolactone 25 MG TABLET PO SCH (09:00)
[2020-02-07] MEDS ORDERED: Primidone 50 MG TABLET PO SCH (09:00)
== END 2020-02-07 13:06 | disposition home health service (06) | DRG 483 ==
LOC: SAMDAY 06:31 → 3NENU 11:11
PROVIDERS: ADMIT Orthopaedic Surgery; ATTEND Orthopaedic Surgery

== ENCOUNTER 2020-02-13 09:23 | Observation (INO) ==
[2020-02-13] MEDS ORDERED: Ipratropium/Albuterol Neb 3 ML IH ONE (09:59)
[2020-02-13 11:01] LABS: Basophils % 0.1 %; Eosinophils # 0.2 K/mcL (0.0-0.6); Eosinophils % 2.7 %; Hematocrit 37.4 % (35.3-44.9); Hemoglobin 11.3 g/dL (11.5-15.4); Immature Granulocytes % 0.9 % (0-4); Lymphocytes # 1.4 K/mcL (0.6-4.6); Lymphocytes % 19.9 %; Mean Corpuscular HGB Conc 30.2 g/dL (31.6-35.5); Mean Corpuscular Hemoglobin 28.2 pg (28.0-33.3); Mean Corpuscular Volume 93.3 fL (83.0-100.0); Mean Platelet Volume 8.8 fL (9.4-12.4); Monocytes # 0.5 K/mcL (0.0-1.3); Monocytes % 7.4 %; Neutrophils # 4.8 K/mcL (1.6-8.9); Nucleated Red Blood Cells 0.3 /100 WBC (0); Platelet Count 263 K/mcL (140-400); Red Blood Count 4.01 M/mcL (3.82-4.97); Red Cell Distribution Width 16.8 % (11.5-14.5)
[2020-02-13 11:13] LABS: INR 1.2; Prothrombin Time 13.1 Seconds (9.4-12.1)
[2020-02-13 11:15] LABS: Activated Partial Thrombo Time 33.2 Seconds (26.0-36.0)
[2020-02-13] MEDS ORDERED: Isovue-370 500 ML BOTTLE IVP ONE (11:18)
[2020-02-13] MEDS ORDERED: 0.9 % Sodium Chloride 1,000 ML IV ONE (11:21)
[2020-02-13 11:28] LABS: BUN/Creatinine Ratio 13 (6-26); Blood Urea Nitrogen 9 mg/dL (6-20); Calcium 9.4 mg/dL (8.6-10.3); Carbon Dioxide 27 mEq/L (23-29); Chloride 102 mEq/L (98-107); Glucose 103 mg/dL (70-105); Osmolality,Calculated 281 (280-300); Potassium 4.2 mEq/L (3.5-5.1); Sodium 136 mEq/L (136-145); eGFR For African Americans > 60 (> 60); eGFR For Non-African Americans > 60 (> 60)
[2020-02-13 11:35] LABS: Troponin I 0.04 ng/mL (< 0.04)
[2020-02-13 11:46] LABS: Albumin 3.6 g/dL (3.5-5.7); Albumin/Globulin Ratio 1.1 (1.1-2.2); Bilirubin,Direct 0.1 mg/dL (0.0-0.2); Bilirubin,Indirect 0.5 mg/dL (0.0-1.0); Bilirubin,Total 0.6 mg/dL (0.3-1.0); Globulin 3.3 g/dL (2.4-3.5); Total Protein 6.9 g/dL (6.4-8.9)
[2020-02-13 12:34] LABS: Bilirubin,Urine Negative (Negative); Blood,Urine Negative (Negative); Clarity,Urine Clear (Clear); Color,Urine Yellow (Yellow); Glucose,Urine (UA) Normal (Normal); Ketones,Urine 15 mg/dL (Negative); Leukocyte Esterase,Urine Negative (Negative); Nitrite,Urine Negative (Negative); Protein,Urine Negative (Neg-Trace); Specific Gravity,Urine 1.014 (1.010-1.025); Urobilinogen,Urine Normal (Normal)
[2020-02-13] MEDS ORDERED: Nitroglycerin 1 INCH/GM PACKET TP ONE (13:25)
[2020-02-13] MEDS ORDERED: Naloxone 0.4 MG/ML INJ IVP PRN (14:46)
[2020-02-13] MEDS ORDERED: 0.9 % Sodium Chloride 1,000 ML IVC SCH (15:00)
[2020-02-13] MEDS ORDERED: Baclofen 10 MG TABLET PO PRN (15:49)
[2020-02-13] MEDS ORDERED: NON-FORMULARY MEDICATION 1 EACH EACH (Meloxicam [Mobic] 15 MG) PO PRN (15:49)
[2020-02-13] MEDS: Ipratropium/Albuterol Neb 3 ML IH SCH ×2 (16:36→21:55)
[2020-02-13] MEDS: Acetaminophen 325 MG TABLET PO PRN (16:57)
[2020-02-13] MEDS: methylPREDNISolone 125 MG/2 ML VIAL IVP SCH (16:58)
[2020-02-13] MEDS: *HR* Heparin 5,000 UNIT/ML VIAL SQ SCH (16:58)
[2020-02-13] MEDS: tiZANidine 4 MG TABLET PO PRN (16:58)
[2020-02-13] MEDS: Gabapentin 300 MG CAPSULE PO SCH (20:07)
[2020-02-13 22:41] LABS: Adenovirus Not Detected (Not Detect); Bordetella Pertussis Not Detected (Not Detect); Chlamydophila pneumoniae Not Detected (Not Detect); Coronavirus 229E Not Detected (Not Detect); Coronavirus HKU1 Not Detected (Not Detect); Coronavirus NL63 Not Detected (Not Detect); Coronavirus OC43 Not Detected (Not Detect); Human Metapneumovirus Not Detected (Not Detect); Human Rhinovirus/Enterovirus Not Detected (Not Detect); Influenza A Subtype 2009 H1 Not Detected (Not Detect); Influenza B Not Detected (Not Detect); Mycoplasma pneumoniae Not Detected (Not Detect); Parainfluenza Virus 1 Not Detected (Not Detect); Parainfluenza Virus 2 Not Detected (Not Detect); Parainfluenza Virus 3 Not Detected (Not Detect); Parainfluenza Virus 4 Not Detected (Not Detect); Respiratory Syncytial Virus Not Detected (Not Detect)
[2020-02-14] MEDS: Acetaminophen 325 MG TABLET PO PRN ×2 (01:53→08:48)
[2020-02-14] MEDS: tiZANidine 4 MG TABLET PO PRN (01:54)
[2020-02-14] MEDS: *HR* Heparin 5,000 UNIT/ML VIAL SQ SCH (03:50)
[2020-02-14] MEDS: methylPREDNISolone 125 MG/2 ML VIAL IVP SCH (04:09)
[2020-02-14] MEDS: Ipratropium/Albuterol Neb 3 ML IH SCH ×2 (04:26→10:35)
[2020-02-14 04:50] LABS: Basophils % 0.2 %; Eosinophils % 0.1 %; Hematocrit 33.7 % (35.3-44.9); Hemoglobin 10.4 g/dL (11.5-15.4); Immature Granulocytes % 1.3 % (0-4); Lymphocytes # 0.9 K/mcL (0.6-4.6); Lymphocytes % 9.3 %; Mean Corpuscular HGB Conc 30.9 g/dL (31.6-35.5); Mean Corpuscular Hemoglobin 28.4 pg (28.0-33.3); Mean Corpuscular Volume 92.1 fL (83.0-100.0); Mean Platelet Volume 9.1 fL (9.4-12.4); Monocytes # 0.3 K/mcL (0.0-1.3); Monocytes % 3.4 %; Neutrophils # 7.8 K/mcL (1.6-8.9); Platelet Count 296 K/mcL (140-400); Red Blood Count 3.66 M/mcL (3.82-4.97); Red Cell Distribution Width 16.6 % (11.5-14.5); Segmented Neutrophils % 85.7 %; White Blood Count 9.2 K/mcL (4.3-11.1)
[2020-02-14 05:13] LABS: BUN/Creatinine Ratio 20 (6-26); Blood Urea Nitrogen 15 mg/dL (6-20); Calcium 8.9 mg/dL (8.6-10.3); Carbon Dioxide 23 mEq/L (23-29); Chloride 104 mEq/L (98-107); Glucose 144 mg/dL (70-105); Osmolality,Calculated 281 (280-300); Potassium 4.3 mEq/L (3.5-5.1); Sodium 134 mEq/L (136-145); eGFR For African Americans > 60 (> 60); eGFR For Non-African Americans > 60 (> 60)
[2020-02-14] MEDS: Gabapentin 300 MG CAPSULE PO SCH (07:49)
[2020-02-14] MEDS ORDERED: Spironolactone 25 MG TABLET PO SCH (09:00)
[2020-02-14] MEDS ORDERED: *HR* HYDROcodone/Acet 5/325 mg TABLET PO PRN (11:06)
[2020-02-14] MEDS ORDERED: Acetaminophen/Butalbital/CaffeineTABLET PO PRN (13:43)
[2020-02-14] MEDS ORDERED: Azithromycin 500 MG in 0.9 % Sodium Chloride 250 ML IVPB SCH (14:00)
[2020-02-14 16:36] VITALS: BP 146/80
[2020-02-14] MEDS ORDERED: MethylPREDNISolone 40 MG/ML VIAL IVP SCH (18:00)
[2020-02-15] MEDS ORDERED: *HR* Enoxaparin 30 MG/0.3 ML SYRINGE SQ SCH (06:00)
[2020-02-15] MEDS ORDERED: predniSONE 20 MG TABLET PO SCH (09:00)
== END 2020-02-14 17:27 | disposition home or self-care (01) ==
LOC: EMEROOARM 09:23 → 2ANU 09:23 → SUATTDRO 15:32 → 2ANU 16:09
PROVIDERS: ADMIT Family Medicine; ATTEND Internal Medicine

== ENCOUNTER 2020-10-18 22:22 | Inpatient (IN) ==
[2020-10-19] MEDS ORDERED: Naloxone 0.4 MG/ML INJ IVP PRN (01:12)
[2020-10-19 05:09] LABS: Basophils % 0.1 %; Eosinophils % 0.1 %; Hematocrit 37.4 % (35.3-44.9); Hemoglobin 11.4 g/dL (11.5-15.4); Immature Granulocytes % 1.2 % (0-4); Lymphocytes # 0.7 K/mcL (0.6-4.6); Lymphocytes % 7.7 %; Mean Corpuscular HGB Conc 30.5 g/dL (31.6-35.5); Mean Corpuscular Hemoglobin 28.4 pg (28.0-33.3); Mean Platelet Volume 8.8 fL (9.4-12.4); Monocytes # 0.1 K/mcL (0.0-1.3); Neutrophils # 8.6 K/mcL (1.6-8.9); Nucleated Red Blood Cells 0.2 /100 WBC (0); Platelet Count 274 K/mcL (140-400); Red Blood Count 4.02 M/mcL (3.82-4.97); Red Cell Distribution Width 16.3 % (11.5-14.5); Segmented Neutrophils % 89.9 %; White Blood Count 9.5 K/mcL (4.3-11.1)
[2020-10-19 05:30] LABS: BUN/Creatinine Ratio 15 (6-26); Blood Urea Nitrogen 13 mg/dL (6-20); Calcium 8.8 mg/dL (8.6-10.3); Carbon Dioxide 26 mEq/L (23-29); Chloride 99 mEq/L (98-107); Glucose 194 mg/dL (70-105); Magnesium 2.1 mg/dL (1.6-2.6); Osmolality,Calculated 279 (280-300); Phosphorous 2.3 mg/dL (2.7-4.5); Sodium 132 mEq/L (136-145); eGFR For African Americans > 60 (> 60); eGFR For Non-African Americans > 60 (> 60)
[2020-10-19] MEDS: *HR* Heparin 5,000 UNIT/ML VIAL SQ SCH ×3 (06:01→21:12)
[2020-10-19] MEDS: Acetaminophen 325 MG TABLET PO PRN ×2 (06:01→21:12)
[2020-10-19] MEDS: cefTRIAXone 1,000 MG in 0.9 % Sodium Chloride Mini Bag 100 ML IVPB SCH (08:34)
[2020-10-19] MEDS: MethylPREDNISolone 40 MG/ML VIAL IVP SCH ×3 (08:38→23:45)
[2020-10-19] MEDS: Azithromycin 500 MG in 0.9 % Sodium Chloride 250 ML IVPB SCH (09:20)
[2020-10-19 10:38] LABS: Adenovirus Not Detected (Not Detect); Bordetella Pertussis Not Detected (Not Detect); Chlamydophila pneumoniae Not Detected (Not Detect); Coronavirus 229E Not Detected (Not Detect); Coronavirus HKU1 Not Detected (Not Detect); Coronavirus NL63 Not Detected (Not Detect); Coronavirus OC43 Not Detected (Not Detect); Human Metapneumovirus Not Detected (Not Detect); Human Rhinovirus/Enterovirus DETECTED (Not Detect); Influenza A Subtype 2009 H1 Not Detected (Not Detect); Influenza B Not Detected (Not Detect); Mycoplasma pneumoniae Not Detected (Not Detect); Parainfluenza Virus 1 Not Detected (Not Detect); Parainfluenza Virus 2 Not Detected (Not Detect); Parainfluenza Virus 3 Not Detected (Not Detect); Parainfluenza Virus 4 Not Detected (Not Detect); Respiratory Syncytial Virus Not Detected (Not Detect); SARS-CoV-2 Not Detected (Not Detect)
[2020-10-19 12:42] LABS: ABG Base Excess 3 mEq/L (-2 to 3); ABG HCO3 30 mEq/L (21-27); ABG Oxygen Saturation 86 % (95-98); ABG PCO2 53 mmHg (35-45); ABG PH 7.36 pH Units (7.32-7.45); ABG PO2 54 mmHg (85-104); ABG TCO2 31 mEq/L (20-26)
[2020-10-19] MEDS: Ipratropium/Albuterol Neb 3 ML IH PRN (12:52)
[2020-10-19] MEDS: Budesonide Neb 0.5 MG/2 ML IH SCH (20:40)
[2020-10-20] MEDS ORDERED: Baclofen 10 MG TABLET PO PRN (00:26)
[2020-10-20] MEDS: *HR* Heparin 5,000 UNIT/ML VIAL SQ SCH ×3 (06:30→20:04)
[2020-10-20] MEDS: Acetaminophen 325 MG TABLET PO PRN ×2 (06:35→22:05)
[2020-10-20] MEDS: Budesonide Neb 0.5 MG/2 ML IH SCH ×2 (08:49→20:24)
[2020-10-20] MEDS: Ipratropium/Albuterol Neb 3 ML IH PRN (08:50)
[2020-10-20] MEDS: cefTRIAXone 1,000 MG in 0.9 % Sodium Chloride Mini Bag 100 ML IVPB SCH (10:19)
[2020-10-20] MEDS: Spironolactone 25 MG TABLET PO SCH (10:22)
[2020-10-20] MEDS: lisinopriL 20 MG TABLET PO SCH (10:22)
[2020-10-20] MEDS: MethylPREDNISolone 40 MG/ML VIAL IVP SCH ×2 (10:26→17:36)
[2020-10-20] MEDS: Nicotine 21 MG PATCH.TD24 TD SCH (11:02)
[2020-10-20 11:36] LABS: Basophils % 0.1 %; Hematocrit 39.6 % (35.3-44.9); Hemoglobin 12.1 g/dL (11.5-15.4); Immature Granulocytes % 1.1 % (0-4); Lymphocytes # 1.1 K/mcL (0.6-4.6); Lymphocytes % 7.5 %; Mean Corpuscular HGB Conc 30.6 g/dL (31.6-35.5); Mean Corpuscular Hemoglobin 28.7 pg (28.0-33.3); Mean Corpuscular Volume 94.1 fL (83.0-100.0); Mean Platelet Volume 9.1 fL (9.4-12.4); Monocytes # 0.8 K/mcL (0.0-1.3); Monocytes % 5.5 %; Neutrophils # 12.5 K/mcL (1.6-8.9); Platelet Count 346 K/mcL (140-400); Red Blood Count 4.21 M/mcL (3.82-4.97); Red Cell Distribution Width 16.9 % (11.5-14.5); Segmented Neutrophils % 85.8 %; White Blood Count 14.6 K/mcL (4.3-11.1)
[2020-10-20] MEDS: Azithromycin 500 MG in 0.9 % Sodium Chloride 250 ML IVPB SCH (11:40)
[2020-10-20 11:56] LABS: BUN/Creatinine Ratio 29 (6-26); Blood Urea Nitrogen 27 mg/dL (6-20); Calcium 9.3 mg/dL (8.6-10.3); Carbon Dioxide 26 mEq/L (23-29); Chloride 101 mEq/L (98-107); Glucose 97 mg/dL (70-105); Magnesium 2.3 mg/dL (1.6-2.6); Osmolality,Calculated 287 (280-300); Potassium 4.6 mEq/L (3.5-5.1); Sodium 136 mEq/L (136-145); eGFR For African Americans > 60 (> 60); eGFR For Non-African Americans > 60 (> 60)
[2020-10-20 12:10] LABS: VBG HCO3 29 mEq/L (21-27); VBG PCO2 55 mmHg (41-51); VBG PH 7.32 pH Units (7.32-7.42); VBG PO2 61 mmHg (25-50)
[2020-10-20] MEDS: Ondansetron ODT 4 MG TAB.RAPDIS SL PRN (12:29)
[2020-10-20] MEDS ORDERED: Gabapentin 300 MG CAPSULE PO SCH (21:00)
[2020-10-20] MEDS ORDERED: Baclofen 10 MG TABLET PO SCH (21:00)
[2020-10-21] MEDS: Ondansetron ODT 4 MG TAB.RAPDIS SL PRN (00:28)
[2020-10-21] MEDS: MethylPREDNISolone 40 MG/ML VIAL IVP SCH ×2 (00:28→09:09)
[2020-10-21 02:49] LABS: Basophils % 0.2 %; Hematocrit 37.4 % (35.3-44.9); Hemoglobin 11.2 g/dL (11.5-15.4); Immature Granulocytes % 1.2 % (0-4); Lymphocytes # 0.7 K/mcL (0.6-4.6); Lymphocytes % 6.7 %; Mean Corpuscular HGB Conc 29.9 g/dL (31.6-35.5); Mean Corpuscular Hemoglobin 28.6 pg (28.0-33.3); Mean Corpuscular Volume 95.7 fL (83.0-100.0); Monocytes # 0.2 K/mcL (0.0-1.3); Monocytes % 1.5 %; Platelet Count 312 K/mcL (140-400); Red Blood Count 3.91 M/mcL (3.82-4.97); Red Cell Distribution Width 16.8 % (11.5-14.5); Segmented Neutrophils % 90.4 %; White Blood Count 11.1 K/mcL (4.3-11.1)
[2020-10-21 03:08] LABS: BUN/Creatinine Ratio 31 (6-26); Blood Urea Nitrogen 34 mg/dL (6-20); Calcium 9.1 mg/dL (8.6-10.3); Carbon Dioxide 29 mEq/L (23-29); Chloride 101 mEq/L (98-107); Glucose 153 mg/dL (70-105); Magnesium 2.5 mg/dL (1.6-2.6); Osmolality,Calculated 291 (280-300); Potassium 5.4 mEq/L (3.5-5.1); Sodium 135 mEq/L (136-145); eGFR For African Americans > 60 (> 60); eGFR For Non-African Americans 53 (> 60)
[2020-10-21] MEDS: *HR* Heparin 5,000 UNIT/ML VIAL SQ SCH (05:10)
[2020-10-21] MEDS: Acetaminophen 325 MG TABLET PO PRN (05:10)
[2020-10-21] MEDS: lisinopriL 20 MG TABLET PO SCH (09:04)
[2020-10-21] MEDS: Spironolactone 25 MG TABLET PO SCH (09:07)
[2020-10-21] MEDS: Nicotine 21 MG PATCH.TD24 TD SCH (09:07)
[2020-10-21] MEDS: cefTRIAXone 1,000 MG in 0.9 % Sodium Chloride Mini Bag 100 ML IVPB SCH (09:27)
[2020-10-21 10:27] VITALS: BP 105/54
[2020-10-21] MEDS: Budesonide Neb 0.5 MG/2 ML IH SCH (10:49)
[2020-10-21] MEDS ORDERED: FLU Vac QV 20-21 (6Month+)/PF 0.5 ML SYRINGE IM ONE (11:33)
[2020-10-21] MEDS: Azithromycin 500 MG in 0.9 % Sodium Chloride 250 ML IVPB SCH (11:41)
== END 2020-10-21 14:30 | disposition home or self-care (01) | DRG 190 ==
LOC: CDU → SUATTDRO 10-19 00:29 → 3ANU 10-19 15:36
PROVIDERS: ADMIT Internal Medicine; ATTEND Pharmacist